=== PATIENT | male | born 1940 | race Caucasian/White ===

== ENCOUNTER 2017-09-11 14:33 | Inpatient (IN) | payer OTHER ==
[~2017-09-11] VITALS: Ht 162.6 cm; Wt 63.5 kg
[2017-09-24] MEDS ORDERED: AMLODIPINE BESYL5 MG PO (11:17)
[2017-09-24] MEDS ORDERED: FENTANYL1 EAC3 TD (11:17)
[2017-09-24] MEDS ORDERED: INTEGRA PLUS C1 EACH PO (11:18)
[2017-09-24] MEDS ORDERED: PEPCID AC20 MG PO (11:18)
== END 2017-09-24 12:20 | DRG 641 ==
LOC: ER 14:33 → SURH 09-12 08:48
PROC: 30233N1 Transfusion of Nonautologous Red Blood Cells into Peripheral Vein, Percutaneous Approach (ICD-10-PCS; 2017-09-13)
PROC: BW21ZZZ Computerized Tomography (CT Scan) of Abdomen and Pelvis (ICD-10-PCS; 2017-09-13)
PROC: BB24ZZZ Computerized Tomography (CT Scan) of Bilateral Lungs (ICD-10-PCS; 2017-09-13)
PROC: CD171ZZ Planar Nuclear Medicine Imaging of Gastrointestinal Tract using Technetium 99m (Tc-99m) (ICD-10-PCS; 2017-09-14)
PROC: 0FB03ZX Excision of Liver, Percutaneous Approach, Diagnostic (ICD-10-PCS; principal; 2017-09-15)
PROC: CP1Z1ZZ Planar Nuclear Medicine Imaging of Musculoskeletal System, All using Technetium 99m (Tc-99m) (ICD-10-PCS; 2017-09-16)
PROC: 0DB78ZX Excision of Stomach, Pylorus, Via Natural or Artificial Opening Endoscopic, Diagnostic (ICD-10-PCS; 2017-09-18)
PROC: BW30ZZZ Magnetic Resonance Imaging (MRI) of Abdomen (ICD-10-PCS; 2017-09-18)
PROC: BW30Y0Z Magnetic Resonance Imaging (MRI) of Abdomen using Other Contrast, Unenhanced and Enhanced (ICD-10-PCS; 2017-09-18)
PROC: B246ZZZ Ultrasonography of Right and Left Heart (ICD-10-PCS; 2017-09-21)
PROC: 0DJD8ZZ Inspection of Lower Intestinal Tract, Via Natural or Artificial Opening Endoscopic (ICD-10-PCS; 2017-09-24)
DX: E86.0 Dehydration (principal); N17.8 Other acute kidney failure; K52.89 Other specified noninfective gastroenteritis and colitis; D64.89 Other specified anemias; K57.30 Diverticulosis of large intestine without perforation or abscess without bleeding; R97.20 Elevated prostate specific antigen [PSA]; K76.89 Other specified diseases of liver; K31.7 Polyp of stomach and duodenum

== ENCOUNTER 2018-08-10 10:05 | Outpatient (CLI) | payer OTHER ==
[~2018-08-10 10:05] MED LIST: AMLODIPINE BESYL5 MG PO; FENTANYL1 EAC3 TD; INTEGRA PLUS C1 EACH PO; PEPCID AC20 MG PO
== END 2018-08-10 10:14 | disposition home or self-care (01) ==
LOC: LAB 10:05 → EDBD 10:05 → LAB 10:14
DX: C22.9 Malignant neoplasm of liver, not specified as primary or secondary (principal); D64.89 Other specified anemias; N17.9 Acute kidney failure, unspecified; E83.39 Other disorders of phosphorus metabolism

== ENCOUNTER 2018-09-07 08:35 | Outpatient (CLI) | payer OTHER | END 2018-09-07 15:00 | disposition home or self-care (01) | LOC: LAB 08:35 | DX: C22.9 Malignant neoplasm of liver, not specified as primary or secondary (principal); D64.89 Other specified anemias; N17.9 Acute kidney failure, unspecified; E83.39 Other disorders of phosphorus metabolism ==

== ENCOUNTER 2018-09-15 08:48 | Outpatient (CLI) | payer OTHER | END 2018-09-15 09:06 | disposition home or self-care (01) | LOC: LAB 08:48 | DX: C22.9 Malignant neoplasm of liver, not specified as primary or secondary (principal); D64.89 Other specified anemias; N17.9 Acute kidney failure, unspecified; E83.39 Other disorders of phosphorus metabolism ==

== ENCOUNTER 2018-09-20 18:14 | Emergency (ER) | payer OTHER ==
[~2018-09-20] VITALS: Ht 157.5 cm; Wt 60.8 kg
[2018-09-20] MEDS ORDERED: TOPROL XL25 M1 (19:09)
[2018-09-20] MEDS ORDERED: NEXIUM40 M1 (19:10)
== END 2018-09-21 06:56 | disposition home or self-care (01) ==
LOC: ER 18:14 → CPU-OBS 18:40 → ER 09-21 06:56
DX: R00.2 Palpitations (principal); I49.8 Other specified cardiac arrhythmias

== ENCOUNTER 2018-09-27 08:22 | Outpatient (CLI) | payer OTHER ==
[~2018-09-27 08:22] MED LIST changes: +NEXIUM40 M1; +TOPROL XL25 M1
== END 2018-09-27 12:16 | disposition home or self-care (01) ==
LOC: LAB 08:22
DX: E55.9 Vitamin D deficiency, unspecified (principal); I10 Essential (primary) hypertension

== ENCOUNTER 2018-10-07 08:52 | Outpatient (CLI) | payer OTHER | END 2018-10-07 11:51 | disposition home or self-care (01) | LOC: LAB 08:52 | DX: D64.89 Other specified anemias (principal); C22.9 Malignant neoplasm of liver, not specified as primary or secondary; E83.39 Other disorders of phosphorus metabolism ==